=== PATIENT | male | born 1995 | race Asian ===

== ENCOUNTER 2017-07-10 13:01 | Emergency (ER) | payer OTHER ==
--- NOTE | 2017-07-10 13:17 | ED Physician Documentation ---
PD HPI HEADACHE - Stated complaint Stated Complaint: HEADACHE - Chief complaint Chief Complaint: Neuro - History obtained from History obtained from: Patient - History of Present Illness Timing - onset: How many hours ago (1), Today Timing - onset during: Light activity Timing - details: Abrupt onset (he had onset of left headache mildly and then gradually worse over several minutes, then worsened to point of distracting him from walking as he got up and was walking across the street. Denies injury. No recent URI. Has nausea and some visual disturbance left lateral eye field.) Location: Front, Left Quality: Throbbing, Aching. No: Thunderclap Associated symptoms: Nausea, Vision changes. No: Fever, Stiff neck, Weakness, Numbness Improved by: No: Rest Worsened by: Light Contributing factors: No: Anticoagulated, Possible carbon monoxide, Recent illness, Trauma Similar symptoms before: No diagnosis (similar episode that lasted about a day several months ago. Interval time without headaches.) Recently seen: Not recently seen Review of Systems Constitutional: denies: Fever, Chills Nose: denies: Rhinorrhea / runny nose, Congestion Throat: denies: Sore throat Cardiac: denies: Chest pain / pressure Respiratory: denies: Cough GI: reports: Nausea. denies: Abdominal Pain, Diarrhea Skin: denies: Rash, Lesions Neurologic: denies: Focal weakness, Numbness, Near syncope PD PAST MEDICAL HISTORY - Past Medical History Past Medical History: No Neuro: None - Past Surgical History Past Surgical History: No - Present Medications Home Medications: Ambulatory Orders Medication Instructions Recorded Confirmed Ibuprofen [Motrin] 600 mg PO TID #20 tab 07/10/17 Ondansetron Odt [Zofran] 4 mg TL Q6H PRN #15 tablet 07/10/17 Tramadol HCl 50 mg PO Q6H PRN #20 tablet 07/10/17 - Allergies Allergies/Adverse Reactions: Allergies Allergy/AdvReac Type Severity Reaction Status Date / Time No Known Drug Allergies Allergy Verified 07/10/17 13:15 - Social History Does the pt smoke?: No Smoking Status: Never smoker - Immunizations Immunizations are current?: Yes PD ED PE NORMAL - Vitals Vital signs reviewed: Yes - General General: Alert and oriented X 3, No acute distress, Well developed/nourished - HEENT HEENT: PERRL, EOMI (light sensitive), Pharynx benign - Neck Neck: Supple, no meningeal sign, No adenopathy - Cardiac Cardiac: RRR, No murmur - Respiratory Respiratory: Clear bilaterally - Abdomen Abdomen: Soft, Non tender - Back Back: No CVA TTP - Derm Derm: Normal color, Warm and dry, No rash - Neuro Neuro: Alert and oriented X 3, 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, No motor deficit, No sensory deficit, Normal speech, Other Eye Opening: Spontaneous Motor: Obeys Commands Verbal: Oriented GCS Score: 15 - Psych Psych: Normal mood, Normal affect Results - Vitals Vitals: Oxygen O2 Source Room air - Labs Labs: Laboratory Tests 07/10/17 07/10/17 07/10/17 13:56 13:56 13:56 WBC 4.0 L RBC 5.54 Hgb 15.5 Hct 44.6 MCV 80.6 MCH 27.9 MCHC 34.6 RDW 13.5 Plt Count 232 MPV 7.5 Neut # 2.1 Lymph # 1.1 L [place] # 0.7 Eos # 0.1 Baso # 0.0 Absolute Nucleated RBC 0.00 Nucleated RBC % 0.1 ESR 1 Sodium 138 Potassium 3.5 Chloride 99 L Carbon Dioxide 27 Anion Gap 12.0 BUN 12 Creatinine 0.7 Estimated GFR (MDRD) 142 Glucose 87 Calcium 9.5 Total Bilirubin 0.7 AST 26 ALT 32 Alkaline Phosphatase 41 L Total Protein 7.8 Albumin 4.7 Globulin 3.1 Albumin/Globulin Ratio 1.5 Lipase 26 - Rads (name of study) head CT Radiology: Prelim report reviewed (no acute process) PD MEDICAL DECISION MAKING - ED course Complexity details: re-evaluated patient (improved with meds targeting migraine. ), considered differential (sounds like migraine though more quick onset. He is here soon after onset and has normal head CT, so shared discussion aobout sufficient for SAH and not doing LP based on current literature. ), d/w patient Departure - Departure Disposition: 01 Home, Self Care Clinical Impression: Headache, acute Qualifiers: Headache type: unspecified Intractability: not intractable Qualified Code(s): R51 - Headache Migraine Qualifiers: Migraine type: without aura Status migrainosus presence: without status migrainosus Intractability: not intractable Qualified Code(s): G43.009 - Migraine without aura, not intractable, without status migrainosus Condition: Stable Record reviewed to determine appropriate education?: Yes Instructions: ED Headache Migraine [facility] Prescriptions: Ibuprofen [Motrin] 600 mg PO TID #20 tab Ondansetron Odt [Zofran] 4 mg TL Q6H PRN #15 tablet PRN Reason: Nausea / Vomiting Tramadol HCl 50 mg PO Q6H PRN #20 tablet PRN Reason: Pain Comments: Home and rest the rest of today. Drink lots of fluids. This sounds like a migraine type headache. Your CT scan and basic blood tests are normal. You can likely expect other episodic headaches similar to this in the near future. This could be weeks or months from now. If you do not have one that would be fine too. For future headaches like this, you can try ondansetron for nausea and ibuprofen and along with that add tramadol if needed for pain. Follow-up with your primary care if these are not adequate for the headaches. Return if other symptoms develop. Forms: Activity restrictions Discharge Date/Time: 07/10/17 15:40
[2017-07-10] MEDS ORDERED: KETOROLAC 60 MG/2 ML VIAL IVP STA (13:30)
[2017-07-10] MEDS ORDERED: SODIUM CHLORIDE 0.9% 1,000 ML IV ONE (13:30)
[2017-07-10] MEDS ORDERED: diphenhydrAMINE INJ 50 MG/ML VIAL IVP STA (13:30)
[2017-07-10] MEDS ORDERED: METOCLOPRAMIDE 10 MG/2 ML VIAL IVP STA (13:30)
--- NOTE | 2017-07-10 14:03 | CT Report ---
EXAM: CT HEAD EXAM DATE: 07/10/2017 01:47 PM. CLINICAL HISTORY: Acute headache and dizziness. COMPARISON: None. TECHNIQUE: Multiaxial CT images were obtained from the foramen magnum to the vertex. Reformats: Coron al. IV contrast: None. In accordance with CT protocol optimization, one or more of the following dose reduction techniques w ere utilized for this exam: automated exposure control, adjustment of mA and/or KV based on patient s ize, or use of iterative reconstructive technique. FINDINGS: Parenchyma: No intraparenchymal hemorrhage. No evidence of mass, midline shift, or CT findings of inf arction. Sameul-white differentiation is distinct. Extraaxial Spaces: Normal for age. No subdural or epidural collections identified. Ventricles: Normal in size and position. Sinuses and Orbits: Single opacified left posterior ethmoid air cell, paranasal sinuses and temporal bone air spaces otherwise appear clear. Bones: No evidence of fracture or calvarial defect. Other: None. IMPRESSION: No CT evidence for acute intracranial abnormality. [facility] Referring Provider Line: [phone] SITE ID: [id number]
[2017-07-10 14:04] LABS: BASOPHILS % (AUTO) 0.7 %; EOSINOPHILS # (AUTO) 0.1 10^3/uL (0.0-0.7); EOSINOPHILS % (AUTO) 2.5 %; HGB - HEMOGLOBIN 15.5 g/dL (14.0-18.0); LYMPHOCYTES # (AUTO) 1.1 10^3/uL (1.5-3.5); LYMPHOCYTES % (AUTO) 27.2 %; MEAN CORPUSCULAR HEMOGLOBIN 27.9 pg (27.0-31.0); MEAN CORPUSCULAR HGB CONC 34.6 g/dL (32.0-36.0); MEAN CORPUSCULAR VOLUME 80.6 fL (80.0-94.0); MEAN PLATELET VOLUME 7.5 fL (7.4-11.4); MONOCYTES # (AUTO) 0.7 10^3/uL (0.0-1.0); MONOCYTES % (AUTO) 17.5 %; NEUTROPHILS # (AUTO) 2.1 10^3/uL (1.5-6.6); NEUTROPHILS % (AUTO) 52.1 %; PLT - PLATELET COUNT 232 10^3/uL (130-450); RED BLOOD COUNT 5.54 10^6/uL (4.70-6.10); RED CELL DISTRIBUTION WIDTH 13.5 % (12.0-15.0)
[2017-07-10 14:17] LABS: ALBUMIN 4.7 g/dL (3.2-5.5); ALBUMIN/GLOBULIN RATIO 1.5 (1.0-2.2); BILIRUBIN,TOTAL 0.7 mg/dL (0.2-1.0); CALCIUM 9.5 mg/dL (8.5-10.3); CREATININE 0.7 mg/dL (0.6-1.2); TOTAL PROTEIN 7.8 g/dL (6.7-8.2)
[2017-07-10] MEDS ORDERED: HYDROmorphone 1 MG/ML SYRINGE IVP STA (14:32)
[2017-07-10] MEDS ORDERED: DEXAMETHASONE 10 MG/ML VIAL IVP STA (15:13)
[2017-07-10 15:28] VITALS: BP 137/83
== END 2017-07-10 15:40 | disposition home or self-care (01) ==
LOC: ED 13:01
DX: G43.009 Migraine without aura, not intractable, without status migrainosus (principal)
CPT/HCPCS: 36415; 70450; 80053; 83690; 85025; 85651; 96361; 96374; 96375; 99284; J1170

== ENCOUNTER 2018-04-25 12:21 | Outpatient (CLI) | payer OTHER ==
[2018-04-25] MEDS ORDERED: GADOBUTROL 7.5 MMOL/7.5 ML VIAL ONE (12:33)
[2018-04-25] MEDS ORDERED: GADOBUTROL 7.5 MMOL/7.5 ML VIAL IVP ONE (13:14)
--- NOTE | 2018-04-25 21:53 | MRI Report ---
Reason: SYNCOPE AND COLLAPSE Procedure Date: 04/25/2018 Accession Number: [id number] / [id number] Procedure: MRI - Brain W/WO CPT Code: FULL RESULT: EXAM: MRI BRAIN WITHOUT AND WITH CONTRAST EXAM DATE: 04/25/2018 01:32 PM. CLINICAL HISTORY: Syncope and collapse. Possible seizures. COMPARISON: CT head without contrast 07/10/2017. TECHNIQUE: Multiplanar, multisequence T1-weighted and fluid-sensitive MR sequences of the brain were performed. Sequences optimized for seizure/epilepsy evaluation. Other: 1.5 Pauline. IV Contrast: 7.5 mL IV Gadavist. FINDINGS: Diffusion weighted sequence shows no evidence for acute infarct. There is no mass, mass effect, midline shift or abnormal extraaxial fluid collection. Size and configuration of the ventricles are normal. There is a nonenhancing 3.8 mm rounded T2 hyperintensity in the right globus pallidus internus posterior inferior lateral to the anterior commissure. Signal in the cortex and white matter appears otherwise normal. Brainstem and cerebellum appear normal. Normal signal and morphology of bilateral hippocampi, amygdala, and parahippocampal gyri. No evidence to suggest mesial temporal or hippocampal sclerosis. No evidence to suggest cortical dysplasia, or bardales matter heterotopia. Major intracranial flow voids appear normal. Limited evaluation of the arteries and dural venous sinus structures on postcontrast imaging appears normal. Globes, orbits, optic nerve sheath complex, optic chiasm, pituitary, cavernous sinus and Meckel's cave appear normal. Paranasal sinuses and mastoid air cells appear well aerated. Marrow signal and extracranial soft tissue appear normal. Craniocervical junction and visualized upper cervical cord appear unremarkable. IMPRESSION: 1. Nonenhancing, nonspecific 3.8 mm [id number] T2 hyperintensity in the deep right cerebrum, superimposed over the anterior medial globus pallidus internus or genu of the right internal capsule. This is of uncertain etiology. Unilateral pallidal lesion is rare, typically from trauma or anoxic event and expected to correlate with dystonia. Clinical correlation suggested. Follow-up MRI of the brain without and with contrast suggested to exclude early presentation of glioma/neoplasm. Other consideration would include atypical demyelinating lesion. Occasionally, nonspecific lesions associated with neurofibromatosis type I (typically termed "unidentified bright object" in literature) may present with this appearance in this location. 2. Otherwise normal MRI of the brain without and with contrast. [facility]
== END 2018-04-25 12:22 | disposition home or self-care (01) ==
LOC: DI 12:21
PROVIDERS: ATTEND General Practice
DX: R55 Syncope and collapse (principal)
CPT/HCPCS: 70553; A9585

== ENCOUNTER 2018-08-01 11:10 | Outpatient (CLI) | payer OTHER | END 2018-08-01 11:11 | disposition short-term general hospital (02) | LOC: EMS 11:10 | PROVIDERS: ATTEND Surgery | DX: R55 Syncope and collapse (principal); R51 Headache | CPT/HCPCS: A0425; A0427 ==

== ENCOUNTER 2018-11-21 10:21 | Outpatient (CLI) | payer OTHER | END 2018-11-21 10:22 | disposition critical access hospital (66) | LOC: EMS 10:21 | PROVIDERS: ATTEND Surgery | DX: R56.9 Unspecified convulsions (principal) | CPT/HCPCS: A0425; A0429 ==

== ENCOUNTER 2018-11-21 10:48 | Emergency (ER) | payer OTHER ==
[2018-11-21 11:45] LABS: BASOPHILS % (AUTO) 0.9 %; EOSINOPHILS # (AUTO) 0.2 10^3/uL (0.0-0.7); HGB - HEMOGLOBIN 15.6 g/dL (14.0-18.0); LYMPHOCYTES # (AUTO) 0.9 10^3/uL (1.5-3.5); LYMPHOCYTES % (AUTO) 17.4 %; MEAN CORPUSCULAR HEMOGLOBIN 27.4 pg (27.0-31.0); MEAN CORPUSCULAR HGB CONC 32.9 g/dL (32.0-36.0); MEAN CORPUSCULAR VOLUME 83.3 fL (80.0-94.0); MEAN PLATELET VOLUME 7.9 fL (7.4-11.4); MONOCYTES # (AUTO) 0.4 10^3/uL (0.0-1.0); MONOCYTES % (AUTO) 7.3 %; NEUTROPHILS # (AUTO) 3.5 10^3/uL (1.5-6.6); NEUTROPHILS % (AUTO) 71.4 %; PLT - PLATELET COUNT 250 10^3/uL (130-450); RED CELL DISTRIBUTION WIDTH 13.4 % (12.0-15.0); WHITE BLOOD COUNT 4.9 x10^3/uL (4.8-10.8)
[2018-11-21 12:02] LABS: ALBUMIN 4.9 g/dL (3.2-5.5); ALBUMIN/GLOBULIN RATIO 1.5 (1.0-2.2); BILIRUBIN,TOTAL 0.6 mg/dL (0.2-1.0); CALCIUM 9.7 mg/dL (8.5-10.3); CREATININE 0.8 mg/dL (0.6-1.2); TOTAL PROTEIN 8.1 g/dL (6.7-8.2)
--- NOTE | 2018-11-21 12:17 | ED Physician Documentation ---
PD HPI FOCAL NEURO - Stated complaint Stated Complaint: POSTICTAL SIEZURE - Chief complaint Chief Complaint: Neuro - History obtained from History obtained from: Patient, EMS - History of Present Illness Timing - onset: Today (This is a 23-year-old gentleman who since June has been having syncopal episodes. From his history it sounds like he has had some sort of tachyarrhythmia and in July he saw motor racer at [facility] and had an attempted ablation done but per his description they could not re-created in the electrophysiology lab so no ablation was done. Since then he has been on metoprolol, initially was on twice a day but that made him pass out to do so now is only taking it once a day. He was sitting in class today and started to feel dizzy and passed out. Per report there was some seizure activity and he woke up with a headache. Review of the chart shows that in April of last year he had an MRI showing a small right deep cerebral lesion, not sure if this is been followed up on.) Review of Systems Ten Systems: 10 systems reviewed and negative Constitutional: denies: Fever, Chills Nose: denies: Rhinorrhea / runny nose, Congestion Throat: denies: Dental pain / toothache, Sore throat Cardiac: denies: Chest pain / pressure, Palpitations, Pedal edema, Calf pain Neurologic: reports: Headache PD PAST MEDICAL HISTORY - Past Medical History Past Medical History: Yes Cardiovascular: Arrhythmia Neuro: Seizure disorder - Past Surgical History Past Surgical History: No - Present Medications Home Medications: Ambulatory Orders Medication Instructions Recorded Confirmed Metoprolol Succinate [Toprol Xl] 25 mg PO DAILY PM 11/21/18 11/21/18 - Allergies Allergies/Adverse Reactions: Allergies Allergy/AdvReac Type Severity Reaction Status Date / Time No Known Drug Allergies Allergy Verified 11/21/18 11:00 - Social History Does the pt smoke?: No Smoking Status: Never smoker Does the pt drink ETOH?: Yes Does the pt have substance abuse?: No - Immunizations Immunizations are current?: Yes - POLST Patient has POLST: No PD ED PE NORMAL - Vitals Vital signs reviewed: Yes - General General: Alert and oriented X 3, No acute distress - HEENT HEENT: PERRL, EOMI - Neck Neck: Supple, no meningeal sign, No bony TTP - Cardiac Cardiac: RRR, No murmur - Respiratory Respiratory: No respiratory distress, Clear bilaterally - Abdomen Abdomen: Normal bowel sounds, Soft, Non tender - Extremities Extremities: No deformity, No tenderness to palpate - Neuro Neuro: Alert and oriented X 3, Other (Seems to have subtly decreased strength on the left side arm and leg and face.) Eye Opening: Spontaneous Motor: Obeys Commands Verbal: Oriented GCS Score: 15 Results - Vitals Vitals: Vital Signs - 24 hr 11/21/18 11/21/18 11/21/18 10:56 12:38 14:00 Temperature 97.9 C H Heart Rate 82 62 57 L Respiratory 14 19 12 Rate Blood Pressure 142/76 H 142/81 H 147/99 H O2 Saturation 96 97 99 Oxygen O2 Source Room air - EKG (time done) 1105 Rate: Rate (enter#) (83) Rhythm: NSR [place]: Normal Intervals: Normal IN QRS: Normal Ischemia: ST elevation c/w repol (mild) Computer interpretation: Agree with computer - Labs Labs: Laboratory Tests 11/21/18 11/21/18 11:30 11:30 WBC 4.9 RBC 5.70 Hgb 15.6 Hct 47.5 MCV 83.3 MCH 27.4 MCHC 32.9 RDW 13.4 Plt Count 250 MPV 7.9 Neut # (Auto) 3.5 Lymph # (Auto) 0.9 L [place] # (Auto) 0.4 Eos # (Auto) 0.2 Baso # (Auto) 0.0 Absolute Nucleated RBC 0.00 Nucleated RBC % 0.0 Sodium 139 Potassium 3.7 Chloride 103 Carbon Dioxide 24 Anion Gap 12.0 BUN 9 Creatinine 0.8 Estimated GFR (MDRD) 121 Glucose 96 Calcium 9.7 Total Bilirubin 0.6 AST 27 ALT 24 Alkaline Phosphatase 46 Total Protein 8.1 Albumin 4.9 Globulin 3.2 Albumin/Globulin Ratio 1.5 Lipase 26 - Rads (name of study) Ct Head Radiology: EMP read contemporaneously (NAD) PD MEDICAL DECISION MAKING - ED course ED course: 23-year-old gentleman with recurrent syncope. He had what sounds like an SVT that they were unable to re-create and ablate. I confirmed this by speaking with his motor racer. His motor racer noted that he has an implantable loop recorder and asked us to have the patient interrogate this and send it to him, he has an adrian on his phone that does this automatically and I will talk to them again after that. Of note previous MRI showed a small right deep cerebral lesion. CT head shows no changes today but is not clear if that was followed up on. [place] was [place] On multiple calls. Dr. Coreas looked at the interrogation and there were no significant tachycardia or bradycardia arrhythmias. Departure - Departure Disposition: 01 Home, Self Care Clinical Impression: Headache, acute Qualifiers: Headache type: unspecified Intractability: not intractable Qualified Code(s): R51 - Headache Syncope Qualifiers: Syncope type: unspecified Qualified Code(s): R55 - Syncope and collapse Condition: Good Record reviewed to determine appropriate education?: Yes Instructions: ED Fainting Unkn Cause Comments: Your MRI in April he did have an abnormality. The [facility] needs to do another MRI with and without contrast. Your CAT scan today was normal. I was unable to get a hold of your flight surgeon to discuss this. Return for new worsening symptoms. There was no arrhythmia on your heart monitor today when you passed out. This makes this unlikely to be a heart issue.
--- NOTE | 2018-11-21 13:08 | CT Report ---
Reason: headache syncope Procedure Date: 11/21/2018 Accession Number: [id number] / [id number] Procedure: CT - HEAD WO CPT Code: FULL RESULT: EXAM: CT HEAD EXAM DATE: 11/21/2018 12:48 PM. CLINICAL HISTORY: Headache syncope. COMPARISON: HEAD W/O 07/10/2017 1:44 PM. TECHNIQUE: Multiaxial CT images were obtained from the foramen magnum to the vertex. Reformats: Sagittal and coronal. IV contrast: None. In accordance with CT protocol optimization, one or more of the following dose reduction techniques were utilized for this exam: automated exposure control, adjustment of mA and/or KV based on patient size, or use of iterative reconstructive technique. FINDINGS: Parenchyma: No intraparenchymal hemorrhage. No evidence of mass, midline shift. Samuel-white differentiation is distinct. Extraaxial Spaces: Basal cisterns remain patent. No subdural or epidural collections identified. Ventricles: Normal in size and position. Sinuses and Orbits: Imaged paranasal sinuses, orbits, and mastoids show no significant abnormality. Bones: No evidence of fracture or calvarial defect. Other: None. IMPRESSION: No acute intracranial abnormality. [facility]
[2018-11-21] MEDS ORDERED: ACETAMINOPHEN 325 MG TABLET PO STA (15:21)
[2018-11-21 15:30] VITALS: BP 136/91
== END 2018-11-21 15:35 | disposition home or self-care (01) ==
LOC: EDUNIT# → ED 10:48
DX: R55 Syncope and collapse (principal); R51 Headache; G40.909 Epilepsy, unspecified, not intractable, without status epilepticus
CPT/HCPCS: 36415; 70450; 80053; 83690; 85025; 93005; 99284; A9270

== ENCOUNTER 2019-03-12 12:05 | Emergency (ER) | payer OTHER ==
[2019-03-12] MEDS ORDERED: SUMAtriptan 6 MG/0.5 ML VIAL SUBQ STA (14:21)
--- NOTE | 2019-03-12 14:22 | ED Physician Documentation ---
PD HPI HEADACHE - Stated complaint Stated Complaint: HEADACHE - Chief complaint Chief Complaint: Neuro - History obtained from History obtained from: Patient - History of Present Illness Timing - onset: Today (24-year-old gentleman with history of migraines. See my note from November of this year. Subsequent to that he said he did have a follow-up MRI in [place] that was normal. He takes Topamax for migraine prevention. Despite that today he developed a gradual onset global and right-sided headache associated with mild confusion, for example he had some word finding difficulties. He denies weakness, numbness, or tingling. He says in the past he is taking Imitrex for this type of symptom with relief.) Review of Systems Constitutional: denies: Fever, Chills Nose: denies: Rhinorrhea / runny nose, Congestion GI: denies: Nausea, Vomiting, Constipation, Diarrhea PD PAST MEDICAL HISTORY - Past Medical History Cardiovascular: Arrhythmia Neuro: Seizure disorder - Past Surgical History Past Surgical History: No - Present Medications Home Medications: Ambulatory Orders Medication Instructions Recorded Confirmed Metoprolol Succinate [Toprol Xl] 25 mg PO DAILY PM 11/21/18 11/21/18 SUMAtriptan [Imitrex] 25 mg PO BID PRN #14 tablet 03/12/19 - Allergies Allergies/Adverse Reactions: Allergies Allergy/AdvReac Type Severity Reaction Status Date / Time No Known Drug Allergies Allergy Verified 03/12/19 12:26 - Social History Does the pt smoke?: No Smoking Status: Never smoker Does the pt drink ETOH?: Yes Does the pt have substance abuse?: No - Immunizations Immunizations are current?: Yes - POLST Patient has POLST: No PD ED PE NORMAL - Vitals Vital signs reviewed: Yes - General General: Alert and oriented X 3, No acute distress - HEENT HEENT: PERRL, EOMI - Neck Neck: Supple, no meningeal sign, No bony TTP - Neuro Neuro: Alert and oriented X 3, 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 He has a migraine today despite being on Topamax prophylaxis which is caused some confusion. After subcutaneous Imitrex all of his symptoms resolved. Departure - Departure Disposition: 01 Home, Self Care Clinical Impression: Migraine Qualifiers: Migraine type: with aura Status migrainosus presence: with status migrainosus Intractability: not intractable Qualified Code(s): G43.101 - Migraine with aura, not intractable, with status migrainosus Condition: Good Record reviewed to determine appropriate education?: Yes Instructions: ED Headache Migraine Prescriptions: SUMAtriptan [Imitrex] 25 mg PO BID PRN #14 tablet PRN Reason: Headache Comments: Call your doctor to arrange a follow-up appointment, make the next available appointment. In the interim, return anytime if worse or if new symptoms develop. Your blood pressure was elevated today on check into the emergency department. This does not mean that you have hypertension, it is a common phenomenon to come to the emergency department and have elevated blood pressure. I recommend that you see your primary care physician within the week to have it rechecked when you are feeling better. Forms: Activity restrictions
[2019-03-12 15:08] VITALS: BP 138/69
== END 2019-03-12 15:11 | disposition home or self-care (01) ==
LOC: ED 12:05
DX: G43.101 Migraine with aura, not intractable, with status migrainosus (principal); R03.0 Elevated blood-pressure reading, without diagnosis of hypertension
CPT/HCPCS: 96372; 99283

== ENCOUNTER 2019-06-30 14:26 | Outpatient (CLI) | payer OTHER | END 2019-06-30 14:27 | disposition critical access hospital (66) | LOC: EMS 14:26 | PROVIDERS: ATTEND Surgery | DX: R56.9 Unspecified convulsions (principal) | CPT/HCPCS: A0425; A0429 ==

== ENCOUNTER 2019-06-30 14:52 | Emergency (ER) | payer OTHER ==
--- NOTE | 2019-06-30 16:37 | ED Physician Documentation ---
History of Present Illness - Stated complaint Stated Complaint: SZ - Chief complaint Chief Complaint: Neuro - Additonal information Additional information: This is a 24-year-old male with a history of migraines and possible seizures versus syncopal episodes who presents after seizure-like activity. Patient has been having seizure type episodes for 2 years. He states that in the past he had was may be a tachyarrhythmia, he saw industrial twisting machine operator at [facility] and they attempted to do an ablation but they could not re-create the dysrhythmia so no ablation was done. He subsequently had a loop recorder that did not show any dysrhythmias, Even during an episode of passing out. 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 He had an MRI recently which did not show any abnormalities. He follows with Dr. Morales Callahan of neurology in [place]. Today at work he had an episode where he began to feel funny and then he passed out and he was witnessed to have a minute of tonic-clonic type shaking, which then resolved and left him confused for around 5 minutes. He did not bite his tongue did not have any incontinence. He now feels completely fine. He did not hit his head, denies headache or chest pain. He is not on any antiepileptic medications. He reportedly has been having these episodes every several months, his last one was in April. Review of Systems Constitutional: denies: Fever Cardiac: denies: Chest pain / pressure Respiratory: denies: Dyspnea Skin: denies: Rash Musculoskeletal: denies: Neck pain Neurologic: reports: Seizure Immunocompromised: denies: Immunocompromised PD PAST MEDICAL HISTORY - Past Medical History Cardiovascular: Arrhythmia Neuro: Seizure disorder - Past Surgical History Past Surgical History: No - Present Medications Home Medications: Ambulatory Orders Medication Instructions Recorded Confirmed Metoprolol Succinate [Toprol Xl] 25 mg PO DAILY PM 11/21/18 11/21/18 SUMAtriptan [Imitrex] 25 mg PO BID PRN #14 tablet 03/12/19 - Allergies Allergies/Adverse Reactions: Allergies Allergy/AdvReac Type Severity Reaction Status Date / Time No Known Drug Allergies Allergy Verified 06/30/19 14:58 - Social History Does the pt smoke?: No Smoking Status: Never smoker Does the pt drink ETOH?: Yes Does the pt have substance abuse?: No - Immunizations Immunizations are current?: Yes - POLST Patient has POLST: No PD ED PE NORMAL - Vitals Vital signs reviewed: Yes - General General: Alert and oriented X 3, No acute distress - HEENT HEENT: PERRL - Neck Neck: Supple, no meningeal sign - Cardiac Cardiac: RRR, No murmur - Respiratory Respiratory: Clear bilaterally - Abdomen Abdomen: Normal bowel sounds, Soft, Non tender, Non distended - Derm Derm: Warm and dry - Extremities Extremities: No deformity - Neuro Neuro: Alert and oriented X 3, veterinary attendant 2-12 intact, No motor deficit, No sensory deficit - Psych Psych: Normal mood, Normal affect Results - Vitals Vitals: Oxygen O2 Source Room air - EKG (time done) 14:57 Other comments: Other comments (Rate 93, rhythm sinus, there is slight concave up ST elevation about 1 mm in V2 and V3 normal for patient's age and sex. No ST depression, intervals are within normal limits.) PD MEDICAL DECISION MAKING - ED course Complexity details: considered differential (Seizure, dysrhtyhmia, complex migraine, vasovagal episode) ED course: Pt presents wtih an episode that does sound like a seizure given a post-ictal period and an estimated 1 minute of clonic movements. He has no tongue laceration, no urinary incontinence. He gets these episodes every several months and had has cardiology work up as well as neurology work up. EKG today shows no signs of dysrhtymia or ischemia. He has no chest pain, no shortness of breath, no neurologic abnormalities and feels completely fine at this time. He has been diagnosed with migraines, and reportedly has been told that these are not true seizures. I was unable to contact his neurologist office as they are closed. I discussed that he needs to follow closely with them and discuss these episodes that he is having every several months, from the description I think seizure is possible. Pt agrees and will call tomorrow. Given he is feeling well and at baseline, neuro exam is normal, vitals are normal, and this is a chronic issue with muiitple past work ups, he appears appropriate for outpatient follow up. I reviewed return precautions and seizure precautions (no driving, climbing at heights, swimming, etc) and pt was discharged in the care of a colleague/LPO. Departure - Departure Disposition: 01 Home, Self Care Clinical Impression: Seizure-like activity Condition: Good Comments: You were seen today after seizure-like activity. Based on the description of what happened, I am concerned that you have had a seizure - you had rhythmic shaking followed by confusion afterwards. It is possible to have seizures even with a normal MRI. Please follow-up with your neurologist as soon as possible. I am concerned that you have have had these episodes every several months, and given they do sound like seizures, I think it be reasonable to consider starting you on an antiepileptic medication. Please call your neurologist tomorrow to discuss these episodes and if medication might be needed. If you are having any worsening such as another episode, chest pain, confusion, or severe headache, return to the emergency department. You should not drive, climb at heights, or swim unsupervised until you are cleared by your neurologist. Discharge Date/Time: 06/30/19 17:14
[2019-06-30 16:55] VITALS: BP 137/87
== END 2019-06-30 17:14 | disposition home or self-care (01) ==
LOC: EDUNIT# → EDBD → ED 14:52
DX: G40.909 Epilepsy, unspecified, not intractable, without status epilepticus (principal); R41.0 Disorientation, unspecified
CPT/HCPCS: 93005; 99284

== ENCOUNTER 2019-08-13 16:06 | Outpatient (CLI) | payer OTHER | END 2019-08-13 16:07 | disposition critical access hospital (66) | LOC: EMS 16:06 | PROVIDERS: ATTEND Surgery | DX: R56.9 Unspecified convulsions (principal); R11.10 Vomiting, unspecified | CPT/HCPCS: A0425; A0427 ==

== ENCOUNTER 2019-08-13 16:34 | Emergency (ER) | payer OTHER ==
[2019-08-13] MEDS ORDERED: ONDANSETRON ODT 4 MG TABLET TL STA (16:51)
[2019-08-13] MEDS ORDERED: PANTOPRAZOLE 40 MG VIAL IV STA (16:51)
--- NOTE | 2019-08-13 17:02 | ED Physician Documentation ---
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 Patient states that he does not remember the episode at all. His friend states that patient was on an exercise bike ahead of him and that he suddenly stiffened up and fell off the bike. He began to shake and his face was twitching. Friend states that the patient's episode lasted about 1 minute he thinks, but he was not paying close attention. The patient states that he has had seizure-like activity previously, but that it is usually associated with migraine headaches, and that since he has been treated with Botox for his migraines, he has not been having Migraines and seizures. Patient has been vomiting coffee-ground type emesis in route, medics state. Patient states that he does not have any history of any gastritis or ulcers, and denies any drinking of alcohol recently. In fact, he states he is not supposed to drink. No abdominal pain. No chest pain. No shortness of breath. Patient states his neck and head do not hurt. No other complaints at this time. Medics state the patient seemed to be postictal when they first picked him up but that he has been becoming more alert and conversant throughout the ambulance ride. Review of Systems Ten Systems: 10 systems reviewed and negative Constitutional: reports: Reviewed and negative Eyes: reports: Reviewed and negative Ears: reports: Reviewed and negative Nose: reports: Reviewed and negative Throat: reports: Reviewed and negative Cardiac: reports: Reviewed and negative Respiratory: reports: Reviewed and negative GI: reports: Nausea, Vomiting : reports: Reviewed and negative Skin: reports: Reviewed and negative Musculoskeletal: reports: Reviewed and negative Neurologic: reports: Seizure Psychiatric: reports: Reviewed and negative Endocrine: reports: Reviewed and negative Immunocompromised: reports: Reviewed and negative PD PAST MEDICAL HISTORY - Past Medical History Past Medical History: Yes Cardiovascular: Arrhythmia Neuro: Seizure disorder - Past Surgical History Past Surgical History: Yes Cardiovascular: Other - Present Medications Home Medications: Ambulatory Orders Medication Instructions Recorded Confirmed Metoprolol Succinate [Toprol Xl] 25 mg PO DAILY PM 06/07/19 06/07/19 SUMAtriptan [Imitrex] 25 mg PO BID PRN #14 tablet 03/12/19 Omeprazole 20 mg PO DAILY 30 Days #30 08/13/19 capsule. Ondansetron Odt [Zofran Odt] 4 mg TL Q6H PRN #10 tablet 08/13/19 - Allergies Allergies/Adverse Reactions: Allergies Allergy/AdvReac Type Severity Reaction Status Date / Time No Known Drug Allergies Allergy Verified 06/30/19 14:58 - Social History Does the pt smoke?: No Smoking Status: Never smoker Does the pt drink ETOH?: Yes Does the pt have substance abuse?: No - Immunizations Immunizations are current?: Yes - POLST Patient has POLST: No PD ED PE NORMAL - Vitals Vital signs reviewed: Yes - General General: No acute distress - HEENT HEENT: PERRL - Neck Neck: Supple, no meningeal sign - Cardiac Cardiac: RRR, No murmur - Respiratory Respiratory: Clear bilaterally - Abdomen Abdomen: Soft, Non tender, Non distended, Other (Patient is vomiting coffee- ground type emesis intermittently.) - Derm Derm: Warm and dry - Extremities Extremities: No deformity - Neuro Neuro: Alert and oriented X 3 - Psych Psych: Normal mood, Normal affect Results - Vitals Vitals: Vital Signs - 24 hr 08/13/19 08/13/19 08/13/19 16:40 17:20 18:21 Temperature 36.3 C L Heart Rate 110 H 100 110 H Respiratory 19 18 20 Rate Blood Pressure 134/75 H 133/73 H 143/74 H O2 Saturation 98 99 99 Oxygen O2 Source Room air - Labs Labs: Laboratory Tests 08/13/19 08/13/19 08/13/19 17:01 17:01 17:01 WBC 9.6 RBC 6.12 H Hgb 17.3 Hct 50.0 MCV 81.7 MCH 28.3 MCHC 34.6 RDW 12.9 Plt Count 278 MPV 9.2 Neut # (Auto) 6.2 Lymph # (Auto) 2.2 Floyd # (Auto) 0.7 Eos # (Auto) 0.3 Baso # (Auto) 0.1 Absolute Nucleated RBC 0.00 Nucleated RBC % 0.0 PT 11.1 INR 1.0 Sodium 137 Potassium 3.0 L Chloride 101 Carbon Dioxide 20 L Anion Gap 16.0 H BUN 19 Creatinine 1.0 Estimated GFR (MDRD) 93 Glucose 112 H Calcium 10.1 Total Bilirubin 0.8 AST 32 ALT 44 Alkaline Phosphatase 49 Total Protein 8.6 H Albumin 5.2 Globulin 3.4 Albumin/Globulin Ratio 1.5 Lipase 28 PD MEDICAL DECISION MAKING - ED course Complexity details: reviewed old records, reviewed results, re-evaluated patient, considered differential, d/w patient ED course: Patient was given a liter of 0.0 normal saline in the emergency permit, as well as Zofran and Protonix. He was worked up with labs and a CT scan of the brain. Work-up was unremarkable, and patient was found to have a normal H&H.On reevaluation, patient was found to be feeling much better. Taking ibuprofen or drinking alcohol, but he did note that he does drink coffee regularly. I discussed the risk factors for gastritis with the patient, and of advised him to avoid coffee, alcohol, NSAIDs, spicy foods or acidic foods for the time being. I discussed with him that if he develops melena or that if he vomits blood again he will need to be evaluated with scope.Patient has an existing history of seizures, though these have generally been associate with migraine headaches. If he develops increasing frequency of seizures or seizures with new triggers, he should follow-up with neurology. We have discussed this.We have discussed the usual indications for return to the emergency department, as well. Departure - Departure Disposition: 01 Home, Self Care Clinical Impression: Seizure, Vomiting, Gastritis Condition: Fair Instructions: ED Gastritis, ED Seizure Recurrent, ED Nausea Vomiting Prescriptions: Omeprazole 20 mg PO DAILY 30 Days #30 capsule. Ondansetron Odt [Zofran Odt] 4 mg TL Q6H PRN #10 tablet PRN Reason: Nausea / Vomiting Comments: Your labs and head CT look good. Is not clear why you had the seizure-like activity today. You will need to follow-up with your doctor through the [facility] to have further evaluation of this issue and decide if you need to be on medication for this.Please take the medication for nausea and to calm your stomach lining, as prescribed. You were found to have small bits of clotted blood in your vomit today, and if this continues, you will also need to follow-up for further evaluation of this issue. Discharge Date/Time: 08/13/19 18:38
[2019-08-13 17:09] LABS: BASOPHILS # (AUTO) 0.1 10^3/uL (0.0-0.1); BASOPHILS % (AUTO) 0.8 %; EOSINOPHILS # (AUTO) 0.3 10^3/uL (0.0-0.7); EOSINOPHILS % (AUTO) 2.6 %; HGB - HEMOGLOBIN 17.3 g/dL (14.0-18.0); LYMPHOCYTES # (AUTO) 2.2 10^3/uL (1.5-3.5); LYMPHOCYTES % (AUTO) 22.5 %; MEAN CORPUSCULAR HEMOGLOBIN 28.3 pg (27.0-31.0); MEAN CORPUSCULAR HGB CONC 34.6 g/dL (32.0-36.0); MEAN CORPUSCULAR VOLUME 81.7 fL (80.0-94.0); MEAN PLATELET VOLUME 9.2 fL (7.4-11.4); MONOCYTES # (AUTO) 0.7 10^3/uL (0.0-1.0); MONOCYTES % (AUTO) 7.2 %; NEUTROPHILS # (AUTO) 6.2 10^3/uL (1.5-6.6); NEUTROPHILS % (AUTO) 64.9 %; PLT - PLATELET COUNT 278 10^3/uL (130-450); RED BLOOD COUNT 6.12 10^6/uL (4.70-6.10); RED CELL DISTRIBUTION WIDTH 12.9 % (12.0-15.0); WHITE BLOOD COUNT 9.6 x10^3/uL (4.8-10.8)
[2019-08-13 17:18] LABS: ALBUMIN 5.2 g/dL (3.2-5.5); ALBUMIN/GLOBULIN RATIO 1.5 (1.0-2.2); BILIRUBIN,TOTAL 0.8 mg/dL (0.2-1.0); CALCIUM 10.1 mg/dL (8.5-10.3); TOTAL PROTEIN 8.6 g/dL (6.7-8.2)
[2019-08-13 17:20] LABS: PT - PROTHROMBIN TIME 11.1 secs (9.9-12.6)
--- NOTE | 2019-08-13 17:31 | CT Report ---
Reason: head trauma, seizure Procedure Date: 08/13/2019 Accession Number: [id number] / [id number] Procedure: CT - HEAD WO CPT Code: Final Report FULL RESULT: EXAM: CT HEAD EXAM DATE: 08/13/2019 05:20 PM. CLINICAL HISTORY: Head trauma, seizure. COMPARISON: HEAD HEAD 01 [facility] HEAD WITHOUT (ADULT) 05/09/2019 7:18 PM. TECHNIQUE: Multiaxial CT images were obtained from the foramen magnum to the vertex. Reformats: Sagittal and coronal. IV contrast: None. In accordance with CT protocol optimization, one or more of the following dose reduction techniques were utilized for this exam: automated exposure control, adjustment of mA and/or KV based on patient size, or use of iterative reconstructive technique. FINDINGS: Parenchyma: No intraparenchymal hemorrhage. No evidence of mass, midline shift, or CT findings of infarction. Samuel-white differentiation is distinct. Extraaxial Spaces: Normal for age. No subdural or epidural collections identified. Ventricles: Normal in size and position. Sinuses and Orbits: There is a single opacified posterior left ethmoid air cell, as before. Otherwise, the visualized paranasal sinuses, orbits, and mastoids show no significant abnormality. Bones: No evidence of fracture or calvarial defect. Other: No scalp contusion is identified. IMPRESSION: Normal head CT. RADIA
[2019-08-13 18:22] VITALS: BP 143/74
== END 2019-08-13 18:38 | disposition home or self-care (01) ==
LOC: EDUNIT# → ED 16:34
DX: R56.9 Unspecified convulsions (principal); K92.0 Hematemesis; K29.70 Gastritis, unspecified, without bleeding
CPT/HCPCS: 36415; 70450; 80053; 83690; 85025; 85610; 96374; 99284; Q0162

== ENCOUNTER 2019-12-05 20:56 | Emergency (ER) | payer OTHER ==
--- NOTE | 2019-12-05 21:07 | ED Physician Documentation ---
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 denies any other complaints.) Review of Systems Constitutional: reports: Reviewed and negative Eyes: reports: Reviewed and negative Ears: reports: Reviewed and negative Nose: reports: Reviewed and negative Throat: reports: Reviewed and negative Cardiac: reports: Reviewed and negative Respiratory: reports: Reviewed and negative GI: reports: Reviewed and negative : reports: Reviewed and negative Skin: reports: Laceration (s) Musculoskeletal: reports: Reviewed and negative Neurologic: reports: Reviewed and negative Psychiatric: reports: Reviewed and negative Endocrine: reports: Reviewed and negative Immunocompromised: reports: Reviewed and negative PD PAST MEDICAL HISTORY - Past Medical History Cardiovascular: Arrhythmia Neuro: Seizure disorder - Past Surgical History Past Surgical History: Yes Cardiovascular: Other - Present Medications Home Medications: Ambulatory Orders Medication Instructions Recorded Confirmed Metoprolol Succinate [Toprol Xl] 25 mg PO DAILY PM 11/21/18 11/21/18 SUMAtriptan [Imitrex] 25 mg PO BID PRN #14 tablet 03/12/19 Omeprazole 20 mg PO DAILY 30 Days #30 08/13/19 capsule. Ondansetron Odt [Zofran Odt] 4 mg TL Q6H PRN #10 tablet 08/13/19 - Allergies Allergies/Adverse Reactions: Allergies Allergy/AdvReac Type Severity Reaction Status Date / Time No Known Drug Allergies Allergy Verified 12/05/19 20:59 - Social History Does the pt smoke?: No Smoking Status: Never smoker Does the pt drink ETOH?: Yes Does the pt have substance abuse?: No - Immunizations Immunizations are current?: Yes - POLST Patient has POLST: No PD ED PE NORMAL - Vitals Vital signs reviewed: Yes - General General: Alert and oriented X 3, No acute distress - HEENT HEENT: PERRL - Neck Neck: Supple, no meningeal sign - Cardiac Cardiac: RRR, No murmur - Respiratory Respiratory: Clear bilaterally - Abdomen Abdomen: Normal bowel sounds, Soft, Non tender, Non distended - Derm Derm: Warm and dry, Other (1 cm laceration to the palmar aspect of the right hand between the index finger and thumb. Radian, median, ulnar motor and sensory exam are intact all range of motion of the thumb is intact to include opposition) - Extremities Extremities: No deformity, Other (1 cm laceration on the palmar aspect of the right hand between the thumb and index finger. 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 strength is 5 out of 5 sensations intact light touch compartments are soft neurovascularly intact full range of motion on opposition and opposition o) - Neuro Neuro: Alert and oriented X 3 - Psych Psych: Normal mood, Normal affect Results - Vitals Vitals: Vital Signs - 24 hr 12/05/19 12/05/19 20:59 22:07 Temperature 36.6 C 37.4 C Heart Rate 109 H 73 Respiratory 14 12 Rate Blood Pressure 142/83 H 152/89 H O2 Saturation 98 98 Oxygen O2 Source Room air Procedures - Laceration (location) Hand right Palmar Length in cm: 1.5 Wound type: Linear Neurovascular status: Sensory intact, Motor intact, Vascular intact Tendon involvement: Tendon intact Anesthesia: Lidocaine 1% with epi Wound Preparation: Irrigated copiously NS, Other (No foreign body identified) Skin layer closure: Nylon, Size #-0 - enter number (4), Sutures - enter # (2) Other: Patient tolerated well, No complications, Neurovascular intact, Dressing applied, Tetanus UTD Complexity: Simple PD MEDICAL DECISION MAKING - ED course Complexity details: considered differential (Hand laceration) Departure - Departure Disposition: 01 Home, Self Care Clinical Impression: Hand laceration Qualifiers: Encounter type: initial encounter Foreign body presence: without foreign body Laterality: right Qualified Code(s): S61.411A - Laceration without foreign body of right hand, initial encounter Condition: Stable Instructions: ED Laceration Hand Follow-Up: Jerry Lowery MD [Primary Care Provider] - Within 1 week Comments: follow up in 7-10 days for suture removal. keep wound clean dry and protected. Discharge Date/Time: 12/05/19 22:07
[2019-12-05] MEDS ORDERED: LIDOCAINE 1%-EPI 1:100000 20 ML MDV SUBQ STA (21:15)
[2019-12-05 22:07] VITALS: BP 152/89
== END 2019-12-05 22:07 | disposition home or self-care (01) ==
LOC: ED 20:56
DX: S61.411A Laceration without foreign body of right hand, initial encounter (principal); W26.0XXA Contact with knife, initial encounter; Y93.G3 Activity, cooking and baking; Y92.000 Kitchen of unspecified non-institutional (private) residence as the place of occurrence of the external cause
CPT/HCPCS: 12001; 99282; 99283

== ENCOUNTER 2020-03-07 00:13 | Emergency (ER) | payer OTHER ==
--- NOTE | 2020-03-07 01:20 | ED Physician Documentation ---
History of Present Illness - Stated complaint Stated Complaint: SZ - Chief complaint Chief Complaint: Neuro - History obtained from History obtained from: Patient - Additonal information Additional information: Patient comes emergency department for chief complaint of breakthrough seizure. Patient has a longstanding history of seizure disorder and normally takes lamotrigine, but states that he has been out of it for the last couple of weeks and needs to grape picker a refill tomorrow. Patient states that he has not had any head injuries. No recent vomiting or he states he is otherwise healthy and d enies any other complaints at this time. Review of Systems Ten Systems: 10 systems reviewed and negative Constitutional: reports: Reviewed and negative Eyes: reports: Reviewed and negative Ears: reports: Reviewed and negative Nose: reports: Reviewed and negative Throat: reports: Reviewed and negative Cardiac: reports: Reviewed and negative Respiratory: reports: Reviewed and negative GI: reports: Reviewed and negative : reports: Reviewed and negative Skin: reports: Reviewed and negative Musculoskeletal: reports: Reviewed and negative Neurologic: reports: Seizure Psychiatric: reports: Reviewed and negative Endocrine: reports: Reviewed and negative Immunocompromised: reports: Reviewed and negative PD PAST MEDICAL HISTORY - Past Medical History Cardiovascular: Arrhythmia Respiratory: None Neuro: Seizure disorder Endocrine/Autoimmune: None GI: None : None Psych: None Musculoskeletal: None Derm: None - Past Surgical History Past Surgical History: Yes Cardiovascular: Other - Present Medications Home Medications: Ambulatory Orders Medication Instructions Recorded Confirmed Metoprolol Succinate [Toprol Xl] 25 mg PO DAILY PM 11/21/18 03/07/20 Acetaminophen [Tylenol] 1 tab PO DAILY 03/07/20 03/07/20 Lamotrigine [Lamotrigine ER] 1 tab PO DAILY 03/07/20 03/07/20 Rizatriptan Benzoate [Rizatriptan] 1 tab PO DAILY 03/07/20 03/07/20 - Allergies Allergies/Adverse Reactions: Allergies Allergy/AdvReac Type Severity Reaction Status Date / Time No Known Drug Allergies Allergy Verified 03/07/20 00:32 - Social History Does the pt smoke?: No Smoking Status: Never smoker Does the pt drink ETOH?: Yes Does the pt have substance abuse?: No - Immunizations Immunizations are current?: Yes - POLST Patient has POLST: No PD ED PE NORMAL - Vitals Vital signs reviewed: Yes - General General: Alert and oriented X 3, No acute distress - HEENT HEENT: Atraumatic, PERRL, EOMI, Moist mucous membranes - Neck Neck: Supple, no meningeal sign - Cardiac Cardiac: RRR, No murmur - Respiratory Respiratory: No respiratory distress, Clear bilaterally - Abdomen Abdomen: Soft, Non tender, Non distended - Derm Derm: Normal color, Warm and dry - Extremities Extremities: No deformity, No edema, No calf tenderness / cord - Neuro Neuro: Alert and oriented X 3, grape picker 2-12 intact, No motor deficit, No sensory deficit, Normal speech - Psych Psych: Normal mood, Normal affect Results - Vitals Vitals: Vital Signs - 24 hr 03/07/20 03/07/20 03/07/20 00:28 01:15 02:03 Temperature 36.6 C 36.7 C 36.9 C Heart Rate 88 74 75 Respiratory 16 16 16 Rate Blood Pressure 138/83 H 129/79 129/78 O2 Saturation 98 98 98 Oxygen O2 Source Room air - Labs Labs: Laboratory Tests 03/07/20 00:25 Sodium 139 Potassium 3.7 Chloride 102 Carbon Dioxide 25 Anion Gap 12.0 BUN 13 Creatinine 1.0 Estimated GFR (MDRD) 92 Glucose 86 Calcium 10.0 PD MEDICAL DECISION MAKING - ED course Complexity details: reviewed results, re-evaluated patient, considered differential, d/w patient ED course: A BMP was checked to evaluate patient's electrolytes, and patient was observed in the emergency department found to have no further seizure activity. I have given the patient a dose of Lamictal here and have advised him to grape picker his Lamictal tomorrow as planned. We discussed the usual indications for return. Departure - Departure Disposition: 01 Home, Self Care Clinical Impression: Breakthrough seizure Condition: Stable Instructions: ED Seizure Recurrent Comments: Your bloodwork looks good. Please get back on your Lamotrigine. You have been given a dose in the emergency department tonight. Discharge Date/Time: 03/07/20 02:04
[2020-03-07] MEDS ORDERED: lamoTRIgine 25 MG TABLET PO ONE (01:32)
[2020-03-07 02:04] VITALS: BP 129/78
[2020-03-07] MEDS ORDERED: lamoTRIgine 25 MG TABLET PO SCH (09:00)
== END 2020-03-07 02:04 | disposition home or self-care (01) ==
LOC: EDUNIT# → ED 00:13
DX: G40.909 Epilepsy, unspecified, not intractable, without status epilepticus (principal); T42.6X6A Underdosing of other antiepileptic and sedative-hypnotic drugs, initial encounter; Z91.138 Patient's unintentional underdosing of medication regimen for other reason
CPT/HCPCS: 36415; 80048; 99283; A9270